=== PATIENT | male | born 1950 | race Caucasian/White ===

== ENCOUNTER → 2020-12-29 | Outpatient (CLI) | payer MEDICARE ==
[~2020-12-29] MED LIST: ASCO500T8 PO; BUSP5TAB2 PO; CHOL10003 PO; DONE10TA7 PO; FINA5TAB4 PO; MEMA10TA PO; MIDO2.5T PO; QUET25TA7 PO; SERT100T PO; TAMS-11 PO; TRAZ50TA66 PO
[2020-12-29 12:20] LABS: BASOPHILS % (AUTO) 1 % (0-1); EOSINOPHILS % (AUTO) 2 % (1-7); LYMPHOCYTES % (AUTO) 16 % (22-44); MEAN CORPUSCULAR HEMOGLOBIN 29.6 pg (27.5-34.5); MEAN PLATELET VOLUME 6.4 fL (7.4-10.4); MONOCYTES % (AUTO) 6 % (2-9); NEUTROPHILS % (AUTO) 75 % (42-75); PLATELET COUNT 319 x10^3/uL (130-400); RED BLOOD COUNT 4.68 x10^6/uL (4.38-5.82); RED CELL DISTRIBUTION WIDTH 14.4 % (9.4-14.8)
[2020-12-29 12:26] LABS: ALANINE AMINOTRANSFERASE 45 U/L (12-78); ALBUMIN 3.3 g/dL (3.4-5.0); ANION GAP 3 mmol/L (5-15); CALCIUM 9.3 mg/dL (8.5-10.1); CHLORIDE 110 mmol/L (98-107); CREATININE 1.78 mg/dL (0.7-1.3)
[2020-12-29 12:29] LABS: ALKALINE PHOSPHATASE 74 U/L (45-117); BILIRUBIN,TOTAL 0.3 mg/dL (0.2-1.0); TOTAL PROTEIN 7.1 g/dL (6.4-8.2)
[2020-12-29 12:31] LABS: MD NO
[2020-12-29 12:49] LABS: INTERNATIONAL NORMALIZED RATIO 0.98 (0.93-1.1); PROTHROMBIN TIME 10.5 Seconds (9.6-11.5)
== END | disposition home or self-care (01) ==
LOC: STAR 10:19
PROVIDERS: ATTEND Urology
DX: Z01.818 Encounter for other preprocedural examination (principal); N40.1 Benign prostatic hyperplasia with lower urinary tract symptoms; Z20.822 Contact with and (suspected) exposure to COVID-19
CPT/HCPCS: 36415; 80053; 85025; 85610; 93005; U0003

== ENCOUNTER 2021-01-02 10:08 | Observation (INO) | payer MEDICARE ==
[~2021-01-02] VITALS: Ht 177.8 cm; Wt 78.5 kg
[2021-01-02] MEDS ORDERED: CHLORHEXIDINE 15 ML UDC ONE (10:20)
[2021-01-02] MEDS ORDERED: CEFAZOLIN 1,000 MG ONE (10:27)
[2021-01-02] MEDS ORDERED: SUCCINYLCHOLINE 20 MG/ML, 10ML ONE (10:27)
[2021-01-02] MEDS ORDERED: ROCURONIUM 10MG/ML,5ML ONE (10:27)
[2021-01-02] MEDS ORDERED: ONDANSETRON 2MG/ML, 2ML ONE ×2 (10:27→15:08)
[2021-01-02] MEDS ORDERED: PROPOFOL 10 MG/ML, 20ML ONE (10:27)
[2021-01-02] MEDS ORDERED: CHLORHEXIDINE 15 ML UDC PO ONE (10:30)
[2021-01-02] MEDS ORDERED: LACTATED RINGERS 1,000 ML IV SCH (10:30)
[2021-01-02] MEDS ORDERED: FENTANYL PF 100 MCG/2ML ONE (11:01)
[2021-01-02] MEDS ORDERED: MIDAZOLAM 1 MG/ML, 2ML ONE (11:01)
[2021-01-02] MEDS ORDERED: MEPERIDINE/PF 25MG/0.5ML IVPush PRN (13:00)
[2021-01-02] MEDS ORDERED: FENTANYL PF 100 MCG/2ML IV PRN (13:00)
[2021-01-02] MEDS ORDERED: DIAZEPAM 5 MG/ML, 2ML IV PRN ×2 (13:00)
[2021-01-02] MEDS ORDERED: METOCLOPRAMIDE 5 MG/ML, 2ML IV PRN (13:00)
[2021-01-02] MEDS ORDERED: KETOROLAC 30 MG/1 ML IV PRN (13:00)
[2021-01-02] MEDS ORDERED: OXYcodone 5 MG/5 ML ORAL.SOL UDC PO PRN (13:00)
[2021-01-02] MEDS ORDERED: LABETALOL 5MG/ML, 20ML IV PRN (13:00)
[2021-01-02] MEDS ORDERED: hydrALAzine 20 MG/ML, 1ML IV PRN (13:00)
[2021-01-02] MEDS ORDERED: PROMETHAZINE 25 MG/ML, 1ML IV PRN (13:00)
[2021-01-02] MEDS ORDERED: HYDROmorphone 1 MG/ML, 1ML INJ IV PRN (13:00)
[2021-01-02] MEDS ORDERED: ONDANSETRON 2MG/ML, 2ML IVPush PRN (13:00)
[2021-01-02] MEDS ORDERED: ALBUTEROL SULFATE 2.5 MG/3 ML NPPB PRN (13:00)
[2021-01-02] MEDS ORDERED: ONDANSETRON 2MG/ML, 2ML IV PRN (16:30)
[2021-01-02] MEDS ORDERED: OPIUM/BELLADONNA SUPP.RECT 16.2-30 MG PR PRN (16:30)
[2021-01-02] MEDS: D5%-LACTATED RINGERS 1,000 ML IV SCH (16:39)
[2021-01-02] MEDS: KETOROLAC 30 MG/1 ML IV SCH ×2 (16:39→23:00)
[2021-01-02] MEDS: ACETAMINOPHEN 500 MG TABLET PO SCH ×2 (18:00→23:00)
[2021-01-02 18:30] VITALS: BP 138/70
[2021-01-02] MEDS: MEMANTINE 10MG TABLET PO SCH (20:45)
[2021-01-02] MEDS: MIDODRINE 2.5 MG TABLET PO SCH (20:46)
[2021-01-02] MEDS: BUSPIRONE 5 MG TABLET PO SCH (20:47)
[2021-01-02] MEDS ORDERED: SERTRALINE 100MG TABLET PO SCH (21:00)
[2021-01-02] MEDS ORDERED: QUETIAPINE 25MG TABLET PO SCH (21:00)
[2021-01-02] MEDS ORDERED: DONEPEZIL 10 MG TABLET PO SCH (21:00)
[2021-01-03 00:10] VITALS: BP 108/53
[2021-01-03] MEDS: D5%-LACTATED RINGERS 1,000 ML IV SCH ×3 (00:15→16:23)
[2021-01-03 03:54] VITALS: BP 115/67
[2021-01-03] MEDS: KETOROLAC 30 MG/1 ML IV SCH ×3 (04:05→16:22)
[2021-01-03 06:10] VITALS: BP 120/65
[2021-01-03 06:12] LABS: ANION GAP 5 mmol/L (5-15); CALCIUM 7.9 mg/dL (8.5-10.1); CHLORIDE 114 mmol/L (98-107)
[2021-01-03] MEDS: ACETAMINOPHEN 500 MG TABLET PO SCH ×3 (06:18→18:15)
[2021-01-03] MEDS ORDERED: CHOLECALCIFEROL 5,000u TAB PO SCH (09:00)
[2021-01-03] MEDS: MIDODRINE 2.5 MG TABLET PO SCH (09:00)
[2021-01-03] MEDS: MEMANTINE 10MG TABLET PO SCH (09:10)
[2021-01-03] MEDS: BUSPIRONE 5 MG TABLET PO SCH ×2 (09:10→16:22)
[2021-01-03 12:10] VITALS: BP 111/65
== END 2021-01-03 18:30 | disposition home or self-care (01) ==
LOC: OUT 10:08 → 4NE 16:01 → ORIP 19:09 → OUT 19:09 → 4NE 19:11
PROVIDERS: ADMIT Urology; ATTEND Urology
DX: N40.1 Benign prostatic hyperplasia with lower urinary tract symptoms (principal); N13.8 Other obstructive and reflux uropathy; R33.9 Retention of urine, unspecified; N21.0 Calculus in bladder; N39.0 Urinary tract infection, site not specified; N13.9 Obstructive and reflux uropathy, unspecified; Z79.899 Other long term (current) drug therapy
CPT/HCPCS: 36415; 52317; 52601; 80048; 82962; 85014; 85018; 88305; 96361; 96374; 96376; G0378; J0330; J0690; J1885; J2250; J2405; J2704; J3010; J7120; J7121